=== PATIENT | male | born 2000 | race Two or more races ===

== ENCOUNTER 2023-05-28 19:58 | Emergency (ER) | payer OTHER ==
[2023-05-28 20:11] VITALS: BP 113/73; PULSE 68; RESP 16; TEMP 98.4; BMI 20.9
[2023-05-28] MEDS ORDERED: KETOROLAC TROMETHAMINE 30 MG/1 ML VIAL IM ONE (20:37)
[2023-05-28] MEDS ORDERED: ACETAMINOPHEN 500 MG TABLET (FP) PO ONE (20:37)
[2023-05-28] MEDS ORDERED: LIDOCAINE 5% TOPICAL PATCH TP ONE (20:38)
[2023-05-28] MEDS ORDERED: LIDOCAINE 5% TOPICAL PATCH ONE (20:39)
[2023-05-28] MEDS ORDERED: ACETAMINOPHEN 500 MG TABLET (FP) ONE (20:39)
[2023-05-28] MEDS ORDERED: KETOROLAC TROMETHAMINE 30 MG/1 ML VIAL ONE (20:39)
[2023-05-28] MEDS ORDERED: LIDOCAINE PATCH REMOVAL MC SCH (22:00)
== END 2023-05-28 20:51 | disposition home or self-care (01) ==
LOC: JERFT 19:58
PROC: 3E0233Z Introduction of Anti-inflammatory into Muscle, Percutaneous Approach (ICD-10-PCS; principal; 2023-05-28)
DX: M62.838 Other muscle spasm (principal)
CPT/HCPCS: 99284-25

== ENCOUNTER 2023-07-27 02:53 | Emergency (ER) | payer OTHER ==
[2023-07-27 03:02] VITALS: BP 122/74; PULSE 72; RESP 20; TEMP 98.5; BMI 19.0
[2023-07-27] MEDS ORDERED: SODIUM CHLORIDE 0.9% 500 ML INFUS.BAG IV ONE (03:33)
[2023-07-27 04:06] LABS: BASO % 0.9 % (0-2.0); EOS % 4.9 % (0-4.5); HEMATOCRIT 42.4 % (35.4-49); HEMOGLOBIN 14.4 GM/dL (11.7-16.9); MCH 29.6 pg (25.7-33.7); MCHC 33.9 g/dl (32.0-35.9); MEAN CELL VOLUME 87.5 fl (80-96); MEAN PLT VOLUME 7.8 fl (7.5-11.1); MONO % 7.3 % (3.8-10.2); NEUT % 55.9 % (42.8-82.8); PLATELET COUNT 279 10^3/uL (134-434); RBC 4.85 M/mm3 (4.00-5.60); RDW 12.4 % (11.9-15.9); WHITE BLOOD COUNT 6.9 K/mm3 (4.0-10.0)
[2023-07-27 04:31] LABS: ALBUMIN 3.9 g/dl (3.4-5.0); BLOOD UREA NITROGEN 14.3 mg/dL (7-18); CALCIUM 8.6 mg/dL (8.5-10.1)
[2023-07-27 04:32] LABS: CREATININE 1.2 mg/dL (0.55-1.3); PHOSPHOROUS 3.7 mg/dL (2.5-4.9)
[2023-07-27 04:34] LABS: BILIRUBIN,TOTAL 0.4 mg/dL (0.2-1); TOT PROT 7.8 g/dl (6.4-8.2)
== END 2023-07-27 04:48 | disposition home or self-care (01) ==
LOC: JER 02:53
DX: R00.2 Palpitations (principal); R42 Dizziness and giddiness; R07.9 Chest pain, unspecified; R06.02 Shortness of breath
CPT/HCPCS: 36415; 71046-TC-FY; 80053; 83735; 84100; 84439; 84443; 84484; 85025; 93005; 93010; 99285-25

== ENCOUNTER 2023-11-05 15:21 | Emergency (ER) | payer OTHER ==
[2023-11-05 15:25] VITALS: BP 120/61; PULSE 72; RESP 18; TEMP 98.3; BMI 17.6
== END 2023-11-05 16:56 | disposition home or self-care (01) ==
LOC: JER 15:21
DX: M79.644 Pain in right finger(s) (principal); M79.645 Pain in left finger(s); T69.1XXA Chilblains, initial encounter
CPT/HCPCS: 99283-25

== ENCOUNTER 2024-03-16 12:28 | Emergency (ER) | payer OTHER ==
[2024-03-16 12:34] VITALS: BP 119/76; PULSE 97; RESP 19; TEMP 98.6; BMI 19.6
== END 2024-03-16 13:22 | disposition home or self-care (01) ==
LOC: JERFT 12:28
DX: H10.13 Acute atopic conjunctivitis, bilateral (principal); J34.89 Other specified disorders of nose and nasal sinuses
CPT/HCPCS: 99283-25

== ENCOUNTER 2024-08-06 13:59 | Emergency (ER) | payer OTHER ==
[2024-08-06 14:05] VITALS: BP 110/72; PULSE 64; RESP 18; TEMP 97.9; BMI 21.7
[2024-08-06] MEDS: SODIUM CHLORIDE 0.9% 500 ML INFUS.BAG IV ONE (15:22)
[2024-08-06] MEDS ORDERED: FAMOTIDINE 10 MG TABLET ONE (15:26)
[2024-08-06] MEDS ORDERED: MAG HYDROX/AL HYDROX/SIMETH 30 ML UNIT-DOSE CUP ONE (15:26)
[2024-08-06] MEDS ORDERED: ONDANSETRON 4 MG/2 ML VIAL ONE (15:27)
[2024-08-06 15:29] LABS: BASO % 0.5 % (0-2.0); EOS % 3.2 % (0-4.5); HEMATOCRIT 45.1 % (35.4-49); HEMOGLOBIN 14.8 GM/dL (11.7-16.9); LYMPH % 21.1 % (8-40); MCH 29.3 pg (25.7-33.7); MCHC 32.8 g/dl (32.0-35.9); MEAN CELL VOLUME 89.6 fl (80-96); MEAN PLT VOLUME 7.5 fl (7.5-11.1); MONO % 10.2 % (3.8-10.2); PLATELET COUNT 241 10^3/uL (134-434); RBC 5.04 M/mm3 (4.00-5.60); RDW 12.8 % (11.9-15.9); WHITE BLOOD COUNT 6.3 K/mm3 (4.0-10.0)
[2024-08-06] MEDS: ONDANSETRON 4 MG/2 ML VIAL IVPUSH ONE (15:32)
[2024-08-06] MEDS: MAG HYDROX/AL HYDROX/SIMETH 30 ML UNIT-DOSE CUP PO ONE (15:32)
[2024-08-06] MEDS: FAMOTIDINE 10 MG TABLET PO ONE (15:32)
[2024-08-06 15:56] LABS: POTASSIUM 4.3 mmol/L (3.5-5.1)
[2024-08-06 15:59] LABS: CALCIUM 9.1 mg/dL (8.5-10.1)
[2024-08-06 16:00] LABS: ALBUMIN 3.7 g/dl (3.4-5.0); BLOOD UREA NITROGEN 13.2 mg/dL (7-18)
[2024-08-06 16:03] LABS: CREATININE 0.8 mg/dL (0.55-1.3)
[2024-08-06 16:04] LABS: BILIRUBIN,TOTAL 0.5 mg/dL (0.2-1)
[2024-08-06 20:29] LABS: HIV INTERPRETATION NEGATIVE (NEGATIVE)
== END 2024-08-06 16:28 | disposition home or self-care (01) ==
LOC: JER 13:59
PROC: 3E033GC Introduction of Other Therapeutic Substance into Peripheral Vein, Percutaneous Approach (ICD-10-PCS; principal; 2024-08-06)
DX: A08.4 Viral intestinal infection, unspecified (principal); R11.10 Vomiting, unspecified
CPT/HCPCS: 36415; 80053; 83690; 85025; 86803; 87389; 96374; 99284-25